=== PATIENT | male | born 1970 | race Caucasian/White ===

== ENCOUNTER 2021-02-03 12:13 | Observation (INO) ==
[2021-02-03 14:02] LABS: Basophils % 0.1 %; Hematocrit 45.2 % (37.5-50.1); Hemoglobin 15.5 g/dL (12.9-16.9); Immature Granulocytes % 0.4 % (0-4); Lymphocytes # 0.6 K/mcL (0.6-4.6); Lymphocytes % 7.9 %; Mean Corpuscular HGB Conc 34.3 g/dL (31.6-35.5); Mean Corpuscular Hemoglobin 29.9 pg (28.0-33.3); Mean Corpuscular Volume 87.3 fL (83.0-100.0); Mean Platelet Volume 9.1 fL (9.4-12.4); Monocytes # 0.3 K/mcL (0.0-1.3); Monocytes % 3.6 %; Neutrophils # 6.1 K/mcL (1.6-8.9); Platelet Count 188 K/mcL (140-400); Red Blood Count 5.18 M/mcL (4.19-5.50); Red Cell Distribution Width 12.1 % (11.5-14.5); White Blood Count 6.9 K/mcL (4.3-11.1)
[2021-02-03] MEDS ORDERED: Isovue-370 500 ML BOTTLE IVP ONE (14:12)
[2021-02-03 14:27] LABS: BUN/Creatinine Ratio 20 (6-26); Blood Urea Nitrogen 16 mg/dL (6-20); Calcium 9.5 mg/dL (8.6-10.3); Carbon Dioxide 29 mEq/L (23-29); Chloride 94 mEq/L (98-107); Glucose 95 mg/dL (70-105); Osmolality,Calculated 281 (280-300); Potassium 4.2 mEq/L (3.5-5.1); Sodium 135 mEq/L (136-145); Troponin I < 0.03 ng/mL (< 0.04); eGFR For African Americans > 60 (> 60); eGFR For Non-African Americans > 60 (> 60)
[2021-02-03] MEDS ORDERED: Acetaminophen 325 MG TABLET PO PRN (16:16)
[2021-02-03] MEDS ORDERED: Naloxone 0.4 MG/ML INJ IVP PRN (16:16)
[2021-02-03] MEDS ORDERED: Ondansetron 4 MG/2 ML VIAL IVP PRN (16:16)
[2021-02-03] MEDS: *HR* Heparin 5,000 UNIT/ML VIAL SQ SCH (18:21)
[2021-02-03 19:29] LABS: Albumin 4.2 g/dL (3.5-5.7); Albumin/Globulin Ratio 1.3 (1.1-2.2); Bilirubin,Direct 0.3 mg/dL (0.0-0.2); Bilirubin,Indirect 0.3 mg/dL (0.0-1.0); Bilirubin,Total 0.6 mg/dL (0.3-1.0); Globulin 3.2 g/dL (2.4-3.5); Total Protein 7.4 g/dL (6.4-8.9)
[2021-02-04 03:13] LABS: Basophils % 0.2 %; Hematocrit 41.2 % (37.5-50.1); Hemoglobin 14.6 g/dL (12.9-16.9); Immature Granulocytes % 0.8 % (0-4); Lymphocytes # 0.5 K/mcL (0.6-4.6); Lymphocytes % 8.2 %; Mean Corpuscular HGB Conc 35.4 g/dL (31.6-35.5); Mean Corpuscular Hemoglobin 30.4 pg (28.0-33.3); Mean Corpuscular Volume 85.7 fL (83.0-100.0); Monocytes # 0.3 K/mcL (0.0-1.3); Monocytes % 4.6 %; Neutrophils # 5.7 K/mcL (1.6-8.9); Platelet Count 212 K/mcL (140-400); Red Blood Count 4.81 M/mcL (4.19-5.50); Red Cell Distribution Width 11.9 % (11.5-14.5); Segmented Neutrophils % 86.2 %; White Blood Count 6.6 K/mcL (4.3-11.1)
[2021-02-04 03:32] LABS: Alanine Aminotransferase 17 Units/L (7-52); Albumin 4.2 g/dL (3.5-5.7); Albumin/Globulin Ratio 1.4 (1.1-2.2); Alkaline Phosphatase 29 Units/L (34-104); Aspartate Amino Transferase 54 Units/L (13-39); BUN/Creatinine Ratio 23 (6-26); Bilirubin,Total 0.7 mg/dL (0.3-1.0); Blood Urea Nitrogen 16 mg/dL (6-20); Calcium 9.2 mg/dL (8.6-10.3); Carbon Dioxide 24 mEq/L (23-29); Chloride 96 mEq/L (98-107); Globulin 3.1 g/dL (2.4-3.5); Glucose 134 mg/dL (70-105); Osmolality,Calculated 281 (280-300); Potassium 3.6 mEq/L (3.5-5.1); Sodium 134 mEq/L (136-145); Total Protein 7.3 g/dL (6.4-8.9); eGFR For African Americans > 60 (> 60); eGFR For Non-African Americans > 60 (> 60)
[2021-02-04] MEDS ORDERED: Remdesivir 200 MG in 0.9 % Sodium Chloride 100 ML IVPB ONE (05:00)
[2021-02-04] MEDS: *HR* Heparin 5,000 UNIT/ML VIAL SQ SCH (05:55)
[2021-02-04 07:57] VITALS: BP 119/66; PULSE 73; TEMP 97.9
[2021-02-04] MEDS ORDERED: Aspirin Enteric Coated 81 MG Tablet PO SCH (09:00)
[2021-02-04] MEDS ORDERED: PARoxetine 20 MG TABLET PO SCH (09:00)
[2021-02-04] MEDS ORDERED: Multivit/Ca/Min/Fe/FA 1 TAB TABLET PO SCH (09:00)
[2021-02-04 12:09] VITALS: O2SAT 92
[2021-02-05] MEDS ORDERED: Remdesivir 100 MG in 0.9 % Sodium Chloride 100 ML IVPB SCH (05:00)
== END 2021-02-04 13:55 | disposition home or self-care (01) ==
LOC: EMEROOARM 12:13 → 2NENU 12:13
PROVIDERS: ADMIT Internal Medicine; ATTEND Internal Medicine

== ENCOUNTER 2021-02-08 19:46 | Inpatient (IN) ==
[2021-02-08 21:16] LABS: ABG Base Excess 3 mEq/L (-2 to 3); ABG HCO3 26 mEq/L (21-27); ABG Oxygen Saturation 83 % (95-98); ABG PCO2 34 mmHg (35-45); ABG PH 7.49 pH Units (7.32-7.45); ABG PO2 43 mmHg (85-104); ABG TCO2 27 mEq/L (20-26)
[2021-02-08 21:42] LABS: Basophils % 0.1 %; Hematocrit 44.4 % (37.5-50.1); Hemoglobin 15.8 g/dL (12.9-16.9); Immature Granulocytes % 5.6 % (0-4); Lymphocytes # 0.6 K/mcL (0.6-4.6); Lymphocytes % 4.4 %; Mean Corpuscular HGB Conc 35.6 g/dL (31.6-35.5); Mean Corpuscular Hemoglobin 30.7 pg (28.0-33.3); Mean Corpuscular Volume 86.2 fL (83.0-100.0); Mean Platelet Volume 8.9 fL (9.4-12.4); Monocytes % 6.9 %; Neutrophils # 12.1 K/mcL (1.6-8.9); Platelet Count 504 K/mcL (140-400); Red Blood Count 5.15 M/mcL (4.19-5.50); Red Cell Distribution Width 11.9 % (11.5-14.5); White Blood Count 14.6 K/mcL (4.3-11.1)
[2021-02-08 22:06] LABS: C-Reactive Protein 168 mg/L (Less than 10); Lactate Dehydrogenase 471 Units/L (140-271)
[2021-02-08 22:08] LABS: Alanine Aminotransferase 36 Units/L (7-52); Albumin 3.8 g/dL (3.5-5.7); Albumin/Globulin Ratio 1.1 (1.1-2.2); Alkaline Phosphatase 36 Units/L (34-104); Aspartate Amino Transferase 38 Units/L (13-39); BUN/Creatinine Ratio 31 (6-26); Bilirubin,Direct 0.3 mg/dL (0.0-0.2); Bilirubin,Indirect 0.8 mg/dL (0.0-1.0); Bilirubin,Total 1.1 mg/dL (0.3-1.0); Blood Urea Nitrogen 19 mg/dL (6-20); Calcium 9.6 mg/dL (8.6-10.3); Carbon Dioxide 25 mEq/L (23-29); Chloride 101 mEq/L (98-107); Globulin 3.4 g/dL (2.4-3.5); Glucose 110 mg/dL (70-105); Osmolality,Calculated 283 (280-300); Potassium 3.8 mEq/L (3.5-5.1); Sodium 135 mEq/L (136-145); Total Protein 7.2 g/dL (6.4-8.9); Troponin I < 0.03 ng/mL (< 0.04); eGFR For African Americans > 60 (> 60); eGFR For Non-African Americans > 60 (> 60)
[2021-02-08 22:20] LABS: Platelet Estimate Normal (Normal)
[2021-02-08] MEDS ORDERED: Isovue-370 500 ML BOTTLE IVP ONE (23:10)
[2021-02-08] MEDS ORDERED: cefTRIAXone 2,000 MG in Water for inj. (sterile) 20 ML IVP ONE (23:18)
[2021-02-09] MEDS ORDERED: Ondansetron 4 MG/2 ML VIAL IVP PRN (00:22)
[2021-02-09] MEDS ORDERED: Naloxone 0.4 MG/ML INJ IVP PRN (00:22)
[2021-02-09] MEDS ORDERED: Acetaminophen 325 MG TABLET PO PRN (00:22)
[2021-02-09 02:39] LABS: Basophils # 0.2 K/mcL (0.0-0.2); Basophils % 0.9 %; Eosinophils % 0.1 %; Hematocrit 42.2 % (37.5-50.1); Hemoglobin 15.1 g/dL (12.9-16.9); Lymphocytes # 0.6 K/mcL (0.6-4.6); Lymphocytes % 3.3 %; Mean Corpuscular HGB Conc 35.8 g/dL (31.6-35.5); Mean Corpuscular Hemoglobin 30.9 pg (28.0-33.3); Mean Corpuscular Volume 86.3 fL (83.0-100.0); Mean Platelet Volume 8.8 fL (9.4-12.4); Monocytes % 5.1 %; Neutrophils # 16.5 K/mcL (1.6-8.9); Platelet Count 492 K/mcL (140-400); Red Blood Count 4.89 M/mcL (4.19-5.50); Red Cell Distribution Width 11.9 % (11.5-14.5); Segmented Neutrophils % 85.6 %; White Blood Count 19.3 K/mcL (4.3-11.1)
[2021-02-09 02:47] LABS: INR 1.4; Prothrombin Time 16.1 Seconds (9.4-12.1)
[2021-02-09 02:58] LABS: Alanine Aminotransferase 38 Units/L (7-52); Albumin 3.6 g/dL (3.5-5.7); Albumin/Globulin Ratio 1.1 (1.1-2.2); Alkaline Phosphatase 33 Units/L (34-104); Aspartate Amino Transferase 40 Units/L (13-39); BUN/Creatinine Ratio 34 (6-26); Bilirubin,Total 0.8 mg/dL (0.3-1.0); Blood Urea Nitrogen 20 mg/dL (6-20); Calcium 9.2 mg/dL (8.6-10.3); Carbon Dioxide 24 mEq/L (23-29); Chloride 100 mEq/L (98-107); Globulin 3.3 g/dL (2.4-3.5); Glucose 113 mg/dL (70-105); Magnesium 1.9 mg/dL (1.6-2.6); Osmolality,Calculated 279 (280-300); Potassium 3.9 mEq/L (3.5-5.1); Sodium 133 mEq/L (136-145); Total Protein 6.9 g/dL (6.4-8.9); eGFR For African Americans > 60 (> 60); eGFR For Non-African Americans > 60 (> 60)
[2021-02-09 03:13] LABS: Thyroid Stimulating Hormone 0.653 mcIU/mL (0.340-5.600)
[2021-02-09] MEDS: Azithromycin 500 MG in 0.9 % Sodium Chloride 250 ML IVPB SCH (09:00)
[2021-02-09] MEDS: *HR* Enoxaparin 40 MG/0.4 ML SYRINGE SQ SCH (10:29)
[2021-02-10] MEDS: *HR* Enoxaparin 40 MG/0.4 ML SYRINGE SQ SCH (08:08)
[2021-02-10] MEDS: Azithromycin 500 MG in 0.9 % Sodium Chloride 250 ML IVPB SCH (08:08)
[2021-02-10] MEDS ORDERED: PARoxetine 20 MG TABLET PO STA ×2 (11:04→11:07)
[2021-02-10 11:24] LABS: Basophils # 0.1 K/mcL (0.0-0.2); Basophils % 0.8 %; Hematocrit 42.7 % (37.5-50.1); Hemoglobin 15.2 g/dL (12.9-16.9); Immature Granulocytes % 6.6 % (0-4); Lymphocytes # 0.5 K/mcL (0.6-4.6); Mean Corpuscular HGB Conc 35.6 g/dL (31.6-35.5); Mean Corpuscular Hemoglobin 30.5 pg (28.0-33.3); Mean Corpuscular Volume 85.7 fL (83.0-100.0); Mean Platelet Volume 8.8 fL (9.4-12.4); Monocytes # 0.8 K/mcL (0.0-1.3); Monocytes % 4.6 %; Platelet Count 686 K/mcL (140-400); Red Blood Count 4.98 M/mcL (4.19-5.50); Red Cell Distribution Width 12.2 % (11.5-14.5); White Blood Count 17.1 K/mcL (4.3-11.1)
[2021-02-10 11:36] LABS: Neutrophils # 14.5 K/mcL (1.6-8.9)
[2021-02-10 11:44] LABS: BUN/Creatinine Ratio 39 (6-26); Blood Urea Nitrogen 24 mg/dL (6-20); Calcium 9.2 mg/dL (8.6-10.3); Carbon Dioxide 23 mEq/L (23-29); Chloride 100 mEq/L (98-107); Glucose 139 mg/dL (70-105); Osmolality,Calculated 282 (280-300); Potassium 3.9 mEq/L (3.5-5.1); Sodium 133 mEq/L (136-145); eGFR For African Americans > 60 (> 60); eGFR For Non-African Americans > 60 (> 60)
[2021-02-10 12:10] LABS: Platelet Estimate Increased (Normal)
[2021-02-10] MEDS: Ipratropium 1 PUFF INHALER IH SCH ×2 (15:33→22:25)
[2021-02-10 17:30] VITALS: BP 117/79; PULSE 64; TEMP 97.7; O2SAT 91
[2021-02-10] MEDS ORDERED: FISH OIL PO SCH (18:00)
[2021-02-10] MEDS ORDERED: FATTY ACIDS PO SCH (18:00)
[2021-02-10] MEDS ORDERED: Aspirin Enteric Coated 81 MG Tablet PO SCH (18:00)
[2021-02-10] MEDS ORDERED: Multivit/Ca/Min/Fe/FA 1 TAB TABLET PO SCH (18:00)
[2021-02-10] MEDS ORDERED: OMEGA PO SCH (18:00)
[2021-02-10] MEDS ORDERED: PARoxetine 20 MG TABLET PO SCH (21:00)
[2021-02-11] MEDS: Ipratropium 1 PUFF INHALER IH SCH (04:20)
[2021-02-11] MEDS ORDERED: Azithromycin 250 MG TABLET PO SCH (09:00)
== END 2021-02-10 19:05 | disposition short-term general hospital (02) ==
LOC: EMEROOARM 19:46 → 2NENU 19:46 → SUATTDRO 02-09 00:06 → OBSVTOIN 02-09 00:06 → 2NENU 02-09 00:46
PROVIDERS: ADMIT Student in an Organized Health Care Education/Training Program; ATTEND Internal Medicine